=== PATIENT | male | born 1950 | race Caucasian/White ===

== ENCOUNTER → 2016-10-10 17:40 | Outpatient (CLI) | payer MEDICARE, OTHER ==
[2016-10-10 20:26] LABS: CHOL - HDL RATIO 4.3 ratio (2.3-4.9); LDL-HDL RATIO 2.9 ratio (1.5-3.5)
== END | disposition home or self-care (01) ==
LOC: D.LABREF 17:40
PROVIDERS: Internal Medicine Interventional Cardiology
DX: E78.5 Hyperlipidemia, unspecified (principal)

== ENCOUNTER 2017-09-29 08:21 | Outpatient (CLI) | payer MEDICARE, OTHER | END 2017-09-29 10:00 | LOC: D.OPS 08:21 → D.RAD 09:30 → D.OPS 10:00 | DX: R13.10 Dysphagia, unspecified (principal); Z01.812 Encounter for preprocedural laboratory examination ==

== ENCOUNTER → 2018-09-08 09:59 | Outpatient (CLI) | payer MEDICARE, OTHER ==
--- NOTE | 2018-09-10 10:32 | EC ---
PATIENT:BLADE VAZQUEZ DATE OF SERVICE: 09/08/18 SEX: M MEDICAL RECORD: [id number] DATE OF : 50 LOCATION:D[facility] AGE OF PATIENT: 67 ADMISSION DATE: 09/08/18 REFERRING PHYSICIAN: INTERPRETING PHYSICIAN: AYO ESTEVEZ MD ECHOCARDIOGRAM REPORT ECHO CHARGES 4 ECHO COMPLETE Date: 09/08/18 CLINICAL DIAGNOSIS: H/O HTN/CAD ECHOCARDIOGRAPHIC MEASUREMENTS (adult normal given) AC root (d.<3.7cm) 2.8 cm LV Septum d (<1.2 cm> 0.9 cm Valve Excursion 2.0 cm LV Septum (systole) 1.5 cm Left Atria (s.<4.0cm> 3.8 cm LVPW d(<1.2cm) 1.2 cm RV (d.<2.3cm) 2.9 cm LVPW (sytole) 1.5 cm LV diastole(<5.6CM) 4.9 cm MV E-F(>70mm/sec) cm LV systole 2.8 cm LVOT Diameter 1.9 cm MV exc.(>10mm) cm Est.ejection fraction (50-75%) % DOPPLER: LVIT cm/sec A 47.0 cm/sec E 76.0 cm/sec LA cm/sec RVSP 29.0 mmHg LVOT 102 cm/sec AOP1/2T m/s Asc. Ao 113 cm/sec RVOT 46.0 cm/sec RA cm/sec PA 97.0 cm/sec AV Gradient Peak 5.1 mmHg AV Mean 2.4 mmHg AV Area 2.5 cm MV Gradient Peak 3.4 mmHg MV Mean 1.3 mmHg MV Area cm COMMENTS: OP - HC Risk Control Product Liability Director: Elsie THOMAS KACIE Test Deck Supervisor: 3 Dr. Mercado TAPE# PACS Pericardial Effusion N DATE OF SERVICE: 09/08/2018 Adequate 2-D echo, color-flow and spectral Doppler, and M-mode. No LVH. LV internal dimensions are normal. Wall motion is normal. EF is equal to 55%. Aortic valve is tricuspid. No evidence of stenosis by Doppler interrogation. Left atrium is normal. Mitral valve shows no prolapse. Trace MR. Right-sided chambers are grossly normal. Trace TR. TRANSINT:[id number] Voice Confirmation ID: [id number] DOCUMENT ID: [id number] ECHOCARDIOGRAM REPORT [id number] BLADE VAZQUEZ,AYO Lucero MD at 1032 CC: [id number] DICTATION DATE: 09/09/18 1351 SENIOR CLINICAL DATA ANALYST: 09/09/18 1632 DEP CLI 09/08/18 [facility] [address] [id number]
== END | disposition home or self-care (01) ==
LOC: D.HCCARDIO 09:59
PROVIDERS: ATTEND Internal Medicine Interventional Cardiology
DX: I25.10 Atherosclerotic heart disease of native coronary artery without angina pectoris (principal)

== ENCOUNTER 2018-10-04 06:54 | Day surgery (SDC) | payer MEDICARE, BC ==
--- NOTE | 2018-10-01 16:30 | HP ---
PATIENT: BLADE VAZQUEZ MEDICAL RECORD: [id number] ACCOUNT: [id number] LOCATION:[facility] : 50 ADMISSION DATE: 10/04/18 PCP: EYAL MELCHOR MD HISTORY AND PHYSICAL EXAMINATION HISTORY: Mr. Vazquez is a 68-year-old male. He has significant, chronic, mostly right-sided sinus disease, refractory to medical management. He is being admitted for sinus surgery. PAST MEDICAL HISTORY: Includes reflux. CURRENT MEDICATIONS: Metoprolol, statin, ranitidine, and oxybutynin. ALLERGIES: No known drug allergies. PHYSICAL EXAMINATION: GENERAL: Healthy appearing, developmentally normal. FACE: Normal and symmetric. No lesions. EYES: Sclerae and conjunctivae are normal. EARS: Canals and TMs are normal. NOSE: No masses or polyps. He does have some significant septal deviation. ORAL CAVITY AND OROPHARYNX: Tongue protrudes in midline. Palate and pharynx normal. NECK: No masses. No adenopathy. CHEST: Clear. CARDIOVASCULAR: Regular rate and rhythm. No murmur. EXTREMITIES: Normal. DIAGNOSTIC DATA: CT shows right maxillary sinus opacified, some ethmoid disease, and material in both sphenoids. IMPRESSION: Mostly right-sided sinus disease. PLAN: Right anterior ethmoidectomy, right middle meatal antrostomy, and bilateral sphenoidotomy. I think that can be accomplished without septoplasty, but it is possible if necessary. TRANSINT:[id number] Voice Confirmation ID: [id number] DOCUMENT ID: [id number] CAROLA DICKERSON MD at 1630 CC: [id number] DICTATION DATE: 09/30/18 1423 SLATE CUTTER: 09/30/18 1443 [facility] [address] [place] [address]
[~2018-10-04] VITALS: Ht 167.6 cm; Wt 81.6 kg
[2018-10-04 07:19] LABS: HEMATOCRIT 42.7 % (42.0-54.0); MCHC 35.1 g/dL (31.0-37.0); MCV 96.8 fL (80.0-100.0); MEAN PLATELET VOLUME 9.7 fL (7.4-10.4); RBC 4.41 10x6/uL (4.20-6.10); RDW 12.5 % (11.5-14.5); WBC 5.3 10x3/uL (4.8-10.8)
[2018-10-04] MEDS ORDERED: PRAVACHOL40 MG PO (08:08)
[2018-10-04] MEDS ORDERED: TOPROL XL25 MG PO (08:11)
[2018-10-04] MEDS ORDERED: RANITIDINE TAB 150 (08:11)
[2018-10-04] MEDS ORDERED: OXYBUTYNIN (08:11)
[2018-10-04 08:13] VITALS: BP 113/67; Ht 167.6 cm; Wt 81.6 kg
--- NOTE | 2018-10-04 13:12 | NUR ---
INSPECTION OF ORAL AND NASAL AIRWAYS REVEALED HEMOSTASIS ACHIEVED. NO ACTIVE BLEEDING NOTED. SP02 97% ON ROOM AIR. NO RESPIRATORY DISTRESS NOTED. WILL CONTINUE TO MONITOR.
--- NOTE | 2018-10-04 13:46 | NUR ---
1345 FL DIET SERVED.
[2018-10-06 14:09] LABS: FUNGUS STAIN Final report (())
--- NOTE | 2018-11-01 11:31 | OP ---
PATIENT NAME: BLADE VAZQUEZ MEDICAL RECORD: [id number] :50 [facility] DATE: SURGEON: JORJE DOMINGUEZ MD DATE OF OPERATION: 10/04/2018 PREOPERATIVE DIAGNOSIS: Chronic sinusitis. POSTOPERATIVE DIAGNOSIS: Chronic sinusitis. PROCEDURES: Right middle meatal antrostomy, right anterior ethmoidectomy, bilateral sphenoidotomy. SURGEON: Jorje Dominguez MD ANESTHESIA: General orotracheal. BLOOD LOSS: Less than 5 cc. SPECIMENS: Tissue from the right lateral nasal wall uncinate. Cultures and path from right maxillary sinus contents. COMPLICATIONS: None. NASAL PACKING: None. DISPOSITION: Recovery stable. FINDINGS: Extremely thick mucus in the right maxillary sinus, anterior ethmoids. PROCEDURE IN DETAIL: She was brought to the operating room and placed in supine position, sedated and intubated by anesthesia. The table was turned 90 degrees. Head drape was applied. He was positioned for sinus surgery. He had already been decongested with Afrin preoperatively. Using a headlight and nasal speculum, the right side of the nose was examined. The middle turbinate, uncinate, lateral nasal wall were injected with 0.5 cc of 1% lidocaine with 1:100,000 epinephrine and 2 Afrin pledgets were placed in each side of the nose. He was positioned, prepped and draped in the usual sterile fashion. Then, using a 0-degree scope, the Afrin pledgets were removed from the right side. The nose was examined. The inferior turbinate was outfractured for better visualization. Looking at the inferior meatus, it was normal, floor of the nose and septum were normal. The middle meatus was normal. There were no polyps, turbinate was normal, nasal vault was normal. Looking back at the posterior nasal cavity, nasopharynx was all normal. A #9 suction was placed at the sphenoid ostia, which was just really slit-like. It was pressing there, was opened up, really was not much in that sinus. A nice clean opening was created there, really almost no bleeding. The sinus was suctioned out. Then the middle turbinate was medialized gently with a freer. Uncinate was fractured anteriorly with a ball tip probe. Microdebrider was used to take it down and expose the maxillary ostia. There was obviously some thick secretions bulging out of there. A large curved olive tip suction was inserted. This was hooked to a Luki trap and the contents of the maxillary sinus were evacuated. There were extremely thick mucus, was suctioned out the entire sinus. Once that was done, the sinus was examined with 30-degree scope, really looked completely evacuated. The mucosa looked normal. There were no polyps or erythema or granulation. OPERATIVE REPORT [id number] BLADE VAZQUEZ Then, the microdebrider was used to enter the ethmoid bulla inferomedially and take down the ethmoid bulla. There was some mucus anteriorly, but more posteriorly even in the anterior ethmoids, so completely clean. It was taken down. There really was no bleeding. Then, the left side was addressed with all the nasal cavity anteriorly were normal except for the septal spur, which made visualization a little bit more difficult, but the root of the superior turbinate was visualized. The sphenoid ostia was then addressed with a #7 suction on that side. It was clean as well. Then, the right maxillary sinus was irrigated repeatedly with saline and curved olive tip suction as were the anterior ethmoids on the right side. This was suctioned from the nasopharynx. Everything was reexamined and cleaned and pediatric upbiting forceps was used to remove some bony spicules from the anterior ethmoid cavity and then some mupirocin was placed in the anterior ethmoid and maxillary sinus. There was no significant bleeding. The pharynx was suctioned. The eyes were examined and normal. He was awakened, extubated, and transported to recovery in good condition. No complications. TRANSINT:[id number] Voice Confirmation ID: [id number] DOCUMENT ID: [id number] JORJE DOMINGUEZ MD at 1131 CC: [id number] DICTATION DATE: 10/04/18 1214 WOUND/OSTOMY NURSE: 10/04/18 1225 [facility] 10/04/[address] [place] [address]
[2018-11-02 07:14] LABS: FUNGUS MYCOLOGY CULTURE Final report (())
== END 2018-10-04 15:15 | disposition home or self-care (01) ==
LOC: D.OPS 06:54 → D.PAN 08:40 → D.OPS 09:30 → D.PAN 10:00 → D.OPS 10:45
PROVIDERS: Anesthesiology; ATTEND Otolaryngology
DX: J32.9 Chronic sinusitis, unspecified (principal)

== ENCOUNTER → 2019-08-23 08:26 | Outpatient (CLI) | payer MEDICARE, BC ==
[2018-10-04 08:13] VITALS: BMI 29.1
--- NOTE | ~2019-08-23 | EC ---
PATIENT:BLADE VAZQUEZ DATE OF SERVICE: 08/23/19 SEX: M MEDICAL RECORD: [id number] DATE OF : 50 LOCATION:D[facility] AGE OF PATIENT: 68 ADMISSION DATE: 08/23/19 REFERRING PHYSICIAN: INTERPRETING PHYSICIAN: AYO ESTEVEZ MD ECHOCARDIOGRAM REPORT ECHO CHARGES 4 ECHO COMPLETE Date: 08/23/19 CLINICAL DIAGNOSIS: DYSPNEA/LOWER EXT EDEMA CAD/HTN ECHOCARDIOGRAPHIC MEASUREMENTS (adult normal given) AC root (d.<3.7cm) 3.8 cm LV Septum d (<1.2 cm> 1.0 cm Valve Excursion 2.3 cm LV Septum (systole) 1.3 cm Left Atria (s.<4.0cm> 3.5 cm LVPW d(<1.2cm) 1.0 cm RV (d.<2.3cm) 3.4 cm LVPW (sytole) 1.5 cm LV diastole(<5.6CM) 5.2 cm MV E-F(>70mm/sec) cm LV systole 3.7 cm LVOT Diameter 1.8 cm MV exc.(>10mm) 1.6 cm Est.ejection fraction (50-75%) % DOPPLER: LVIT cm/sec A 76.0 cm/sec E 55.0 cm/sec LA cm/sec RVSP 15 mmHg LVOT 93 cm/sec AOP1/2T m/s Asc. Ao 115 cm/sec RVOT 74 cm/sec RA cm/sec PA 128 cm/sec AV Gradient Peak 5.27 mmHg AV Mean 3.08 mmHg AV Area 2.1 cm MV Gradient Peak 3.06 mmHg MV Mean 1.15 mmHg MV Area cm COMMENTS: Driver Sales: 2 ANDRE MCCRACKEN Template Storage Clerk: 3 Dr. Mercado TAPE# PACS Pericardial Effusion N DATE OF SERVICE: Adequate 2D, color flow imaging, spectral Doppler, and M-Mode. No LVH. LV internal dimension is normal. Wall motion is normal. EF is greater than or equal to 55%. Aortic valve is tricuspid. No evidence of stenosis by Doppler interrogation. Left atrium is normal. Mitral valve shows no prolapse. Trace MR. Right-sided chambers are grossly normal. Trace TR. TRANSINT:[id number] Voice Confirmation ID: [id number] DOCUMENT ID: [id number] ECHOCARDIOGRAM REPORT [id number] BLADE VAZQUEZ GREGORY A MD CC: [id number] DICTATION DATE: 08/24/19 0935 COOKER CLEANER: 08/24/19 1747 DEP CLI 08/23/19 [id number] [place] [address]
[~2019-08-23 08:26] MED LIST: OXYBUTYNIN; PRAVACHOL40 MG PO; RANITIDINE TAB 150; TOPROL XL25 MG PO
== END | disposition home or self-care (01) ==
LOC: D.HCCECHO 08:26
PROVIDERS: ATTEND Internal Medicine Interventional Cardiology
DX: I25.10 Atherosclerotic heart disease of native coronary artery without angina pectoris (principal)

== ENCOUNTER → 2019-08-24 08:50 | Outpatient (CLI) | payer MEDICARE, BC ==
[2018-10-04 08:13] VITALS: BMI 29.1
== END | disposition home or self-care (01) ==
LOC: D.HCCARDIO 08:50
PROVIDERS: ATTEND Internal Medicine Cardiovascular Disease
DX: R06.00 Dyspnea, unspecified (principal)

== ENCOUNTER 2019-09-06 11:53 | Outpatient (CLI) | payer MEDICARE, BC ==
[~2019-09-06] VITALS: Ht 167.6 cm; Wt 80.9 kg
--- NOTE | ~2019-09-06 | HEMODYNAMI ---
PATIENT:BLADE VAZQUEZ MEDICAL RECORD: [id number] : 50 LOCATION:DLudivinaCAT ADMISSION DATE: 09/06/19 Generatedon:09/06/201914:16 Patient name: BLADE VAZQUEZ Patient #: [id number] SSN: [id number] : 1950 Date of study: 09/06/2019 Page: Of Hemodynamic Procedure Report Patient Data Patient Demographics Procedure consent was obtained First Name: BLADE Gender: Male Last Name: TAYLOR : 1950 Middle Initial: E Age: 68 year(s) Patient #: [id number] Race: SSN: [id number] Additional ID: [id number] Contact details [address]: [address] [place] [address] State: [place] City: [place] Zip code: [address] Past Medical History Allergies Allergen Reaction Date Comments Reported Other allergy 09/06/2019 ATORVASTATIN Admission Admission Data Admission Date: 09/06/2019 Admission Time: 11:53 Arrival Date: 09/06/2019 Arrival Time: 0:00 Admit Source: Other Insurance Payor: Medicare [facility] #: [id number] Height (in.): 66 BSA: 1.9 (m2) Height (cm.): 167.64 BMI: 28.57 (kg/m2) Weight (lbs.): 177 Weight (kg.): 80.29 Lab Results Lab Result Date: 09/06/2019 Lab Result Time: 0:00 CBC Name Units Result Min Max Hematocrit % 44.6 --(*---)-- 42 54 Hemoglobin g/dl 14.9 --(-*--)-- 13.5 17.5 Procedure Procedure Types Cath Procedure Diagnostic Procedure [facility] w/Coronaries Procedure Description Procedure Date Procedure Date: 09/06/2019 Procedure Start Time: 14:02 Procedure End Time: 14:12 Procedure Staff Name Function Jevon Little MD Performing Physician Paulina Rush RT Monitor Azul Denny RT William Garrido RN Nurse Procedure Data Cath Procedure Fluoroscopy Diagnostic fluoroscopy Total fluoroscopy Time: 3.7 time: 3.7 min min Diagnostic fluoroscopy Total fluoroscopy dose: 485 dose: 485 mGy mGy Contrast Material Contrast Material Type Amount (ml) Isovue 300 58 Entry Location Entry Primary Successful Side Size Upsize Upsize Entry Closure Merritt ccessful Closure Location (Fr) 1 (Fr) 2 (Fr) Remarks Device Remarks Radial Right 6 Fr Mechanical artery Short Compression Estimated blood loss: 5 ml Diagnostic catheters Device Type Used For End Catheter Placement DIAGNOSTIC Ravalli 110cm 5 Multi-vessel Fr catheter ([id number]) Angiography Procedure Complications No complications Procedure Medications Medication Administration Route Dosage Oxygen etCO2 Nasal cannula 2 l/min Lidocaine 2% added to field 20 Heparin Flush Bag added to field 2 bags (1000units/500ml NS) 0.9% NaCl I.V. 100 ml/hr Versed I.V. 1 mg Fentanyl I.V. 50 mcg Versed I.V. 1 mg Fentanyl I.V. 50 mcg Versed I.V. 1 mg Hemodynamics Rest BSA: 1.9 (m2) HGB: 14.9 (g/dl) O2 Consumption: Estimated: 226.15 (ml/min) O2 Con sumption indexed: Estimated:119.03 (ml/min/m) Heart Rate: 78 (bpm) Pressure Samples Time Site Value (mmHg) Purpose Heart Use Rate(bpm) 14:06 LV 130/6,8 Snapshot 78 Gradients Valve Time Site Site Mean SEP/DFP Peak To Heart Use 1 2 (mmHg) (sec/min) Peak Rate (mmHg) (bpm) Aortic 14:06 LV AO 107 Snapshots Pre Cath Intra NCS Post Cath Vital Signs Time Heart Resp SPO2 etCO2 NIBP (mmHg) Rhythm Pain Sedation Rate (ipm) (%) (mmHg) Status Level (bpm) 13:49:26 74 17 99 39.7 157/92(132) NSR 0 (11) 10(A) , No pain 13:53:42 74 13 99 37.4 132/79(116) NSR 0 (11) 10(A) , No pain 13:57:56 79 14 99 41.9 122/81(105) NSR 0 (11) 10(A) , No pain 14:02:06 78 13 97 41.9 127/83(100) NSR 0 (11) 10(A) , No pain 14:06:16 70 15 96 38.2 103/81(91) NSR 0 (11) 9(A) , No pain 14:10:20 80 15 95 42.7 119/73(100) NSR 0 (11) 9(A) , No pain 14:13:46 81 14 96 8.9 125/73(95) NSR 0 (11) 10(A) , No pain Medications Time Medication Route Dose Verified Delivered Reason Notes Eff ectiveness by by 13:53:21 Oxygen etCO2 2 Jevon Buffie used for Nasal l/min [facility] Garrido kier tender cannula 13:53:26 Lidocaine 2% added 20ml Jevon Jevon for local to vial [facility] anesthetic field MD ALANIS 13:53:35 Heparin Flush added 2 Jevon Jevon used for Bag to bags [facility] procedure (1000units/500ml field MD ALANIS NS) 13:54:00 0.9% NaCl I.V. 100 Jevon Buffie Per ml/hr [facility] Garrido RN physician 13:54:23 Versed I.V. 1 mg Jevon Buffie for [facility] Garrido RN sedation 13:54:27 Fentanyl I.V. 50 Jevon Buffie for [facility] [place] [facility] Garrido RN sedation 14:00:31 Versed I.V. 1 mg Jevon Buffie for [facility] Garrido RN sedation 14:00:34 Fentanyl I.V. 50 Jevon Buff[address] for mcg [facility] Garrido RN sedation 14:07:55 Versed I.V. 1 mg Jevon Buffie for [facility] Garrido RN sedation Procedure Log Time Note 13:07:28 Informed consent obtained and on chart 13:07:37 Diagnostic Cath Status : Elective 13:07:53 Arrival Date: 09/06/2019 12:00:00 AM 13:07:54 Admit Source: Other 13:07:56 Insurance Payor : Medicare 13:08:24 Patient Height : 66 inches 13:08:31 Patient Weight : 177 lbs 13:18:34 Procedure Status Elective Heart Cath (OP). 13:18:37 Time tracking: Regular hours (M-F 7:00 - 5:00) 13:18:42 Plan of Care:Hemodynamics will remain stable., Cardiac rhythm will remain stable., Comfort level will be maintained., Respiratory function will remain adequate., Patient/ family verbilizes understanding of procedure., Procedure tolerated without complication., Recovers from procedure without complications.. 13:23:05 Paulina Rush RT(R) sent for patient. Start room use. 13:38:48 Lab Result : Hemoglobin 14.9 g/dl 13:38:48 Lab Result : Hematocrit 44.6 % 13:39:30 Stress Test: yes; abnormal INFERIOR AND LATERAL 13:39:32 Alarms reviewed by R. N. 13:39:32 Sharps counted by scrub and verified by R.N. 13:39:38 Lab results completed and on chart. 13:39:54 H&P Date Dictated: 08/18/2019 Within 30 days and on chart.. 13:41:29 Patient received from Pre/Post Procedure Room to CCL 1 Alert and oriented. Tansferred to table in Supine position. 13:41:31 Warm blankets applied, and louie hugger turned on for patient comfort. 13:41:32 Correct patient and procedure confirmed by team. 13:41:32 ECG and BP/O2 sat monitors applied to patient. 13:41:34 Pre-procedure instructions explained to patient. 13:41:35 Pre-op teaching completed and patient verbalized understanding. 13:41:37 Family in waiting room. 13:41:38 Patient NPO since Midnight. 13:41:53 Patient allergic to Other allergyATORVASTATIN 13:42:10 Is the patient allergic to Iodine/contrast media? No. 13:47:19 Was the patient premedicated? Yes 13:47:26 Is patient on blood thinner?No 13:47:32 Patient diabetic? No. 13:47:33 Previous problem with sedation/anesthesia? No ? 13:48:05 Snore? Yes 13:48:06 Sleep apnea? No 13:48:07 Deviated septum? No 13:48:08 Opens mouth fully? Yes 13:48:09 Sticks out tongue? Yes 13:48:12 Airway obstruction? No ? 13:48:14 Vital chart was started 13:48:16 Dentures? No ? 13:48:19 Pre procedure: right dorsailis pedis pulse 2+ Normal; easily identifiable; not easily obliterated 13:48:22 Pre procedure: left dorsailis pedis pulse 2+ Normal; easily identifiable; not easily obliterated 13:48:25 Patient pain scale 0/10 ?. 13:48:31 IV patent on arrival in left antecubital with 0.9% NaCl at [facility]. 13:50:10 Physician arrived 13:50:11 --------ALL STOP TIME OUT------ 13:50:11 Final Timeout: patient, procedure, and site verified with staff and physician. All members of the team are in agreement. 13:50:14 Right Radial & Right Groin site verified by team. 13:50:17 Fire Safety Assessment: A--An alcohol-based skin anteseptic being used preoperatively., C--Open oxygen or nitrous oxide is being used., D--An ESU, laser, or fiber-optic light is being used. 13:50:20 Physical assessment completed. ASA score P 2 - A patient with mild systemic disease as per Jevon Little MD. 13:50:58 Baseline sample Acquired. 13:51:01 Rhythm: sinus rhythm 13:51:03 Full Disclosure recording started 13:53:21 Oxygen 2 l/min etCO2 Nasal cannula was administered by Patrice Garrido RN; used for procedure; Verbal order read back and verified. 13:53:26 Lidocaine 2% 20ml vial added to field was administered by Jevon Little MD; for local anesthetic; Verbal order read back and verified. 13:53:35 Heparin Flush Bag (1000units/500ml NS) 2 bags added to field was administered by Jevon Little MD; used for procedure; Verbal order read back and verified. 13:54:00 0.9% NaCl 100 ml/hr I.V. was administered by Patrice Garrido RN; Per physician; Verbal order read back and verified. 13:54:23 Versed 1 mg I.V. was administered by Patrice Garrido RN; for sedation; Verbal order read back and verified. 13:54:27 Fentanyl 50 mcg I.V. was administered by Patrice Garrido RN; for sedation; Verbal order read back and verified. 14:00:31 Versed 1 mg I.V. was administered by Patrice Garrido RN; for sedation; Verbal order read back and verified. 14:00:34 Fentanyl 50 mcg I.V. was administered by Patrice Garrido RN; for sedation; Verbal order read back and verified. 14:01:11 2) 60-89 Mildly reduced kidney function, and other findings (as for stage 1) point to kidney disease. 14:01:36 Maximum allowable contrast dose (3.7 X eGFR X 0.75)219 ml. 14:01:38 Zero performed for pressure channel P1 14:01:56 Use device set Radial Dx or PCI 14:01:57 ACIST Syringe (76787) opened to sterile field. 14:01:57 Medline Cath Pack ([id number]) opened to sterile field. 14:01:57 Bag Decanter (2002S) opened to sterile field. 14:01:58 ACIST Hand Control (81969) opened to sterile field. 14:01:58 ACIST Manifold (95772) opened to sterile field. 14:01:58 Tegaderm 4 x 4 (1626W) opened to sterile field. 14:01:59 MBrace Wrist Support ([id number]) opened to sterile field. 14:02:01 SHEATH 6FR RAIN (3487986) opened to sterile field. 14:02:02 EMERALD Guide Wire (432-815) opened to sterile field. 14:02:06 Procedure started. 14:02:11 Local anesthetic to right radial artery with Lidocaine 2% by Jevon Little MD.INITIAL ACCESS ONLY 14:02:31 A 6 Fr Short sheath was inserted into the Right Radial artery 14:04:10 A DIAGNOSTIC Ravalli 110cm 5 Fr catheter ([id number]) was advanced over the wire and used for Multi-vessel Angiography. 14:06:17 LV hemodynamics recorded. 14:06:18 LV gram done using MARISCAL 14:06:20 Injector settings: Ml/sec: 5, Volume: 15, 14:06:31 EF : 55 % 14:06:49 RCA angiography performed. 14:07:01 Injector settings: Ml/sec: 3, Volume: 6, 14:07:42 Catheter removed. 14:07:55 Versed 1 mg I.V. was administered by Patrice Garrido RN; for sedation; Verbal order read back and verified. 14:08:38 GUIDE 5FR EBU 3.5 catheter ([id number]) opened to sterile field. 14:08:51 5 Fr EBU 3.5 guide catheter was inserted over the wire 14:09:40 LCA angiography performed. 14:09:44 Injector settings: Ml/sec: 3, Volume: 6, 14:10:27 Catheter removed. 14:10:30 ZEPHYR REGULAR TR BAND ([id number]) opened to sterile field. 14:10:36 ACCDominant side:Right 14:10:44 Sheath removed intact; hemostasis achieved with Mechanical Compression to the Right Radial artery. 14:10:56 Procedure ended.(Physican Out) 14:11:05 Fluoroscopy time 03.70 minutes. 14:11:09 Flurop Dose total: 485 14:11:09 Fluoroscopy dose: 485 mGy 14:11:14 Dose Area Product 53443 mGy/cm. 14:11:18 Contrast amount:Isovue 300 58ml. 14:11:20 Maximum allowable dose exceeded? No. 14:11:21 Sharps counted by scrub and verified by R.N. 14:11:26 [place] band inflated with 10cc of air. 14:11:27 Insertion/operative site no bleeding no hematoma. 14:11:31 Post right radial artery:stable 14:11:32 Post Procedure Pulses reassessed and unchanged 14:11:34 Post procedure rhythm: unchanged. 14:11:37 Estimated blood loss: 5 ml 14:11:45 Post procedure instruction explained to patient.Patient verbalizes understanding. 14:11:46 Patient needs reinforcement of post procedure teaching. 14:12:13 Procedure and supply charges have been captured, reviewed, submitted and are correct. 14:12:18 Procedure Complication : No complications 14:12:20 Vital chart was stopped 14:12:22 [facility] Findings: mild to moderate CAD (<70%) 14:12:24 Operative report dictated upon procedure completion. 14:12:25 See physician's report for complete and final results. 14:12:27 Report given to Pre/Post Procedure Room. 14:12:29 Procedure ended. 14:12:29 Full Disclosure recording stopped 14:12:33 End room use (Document Last) 14:12:59 End room use (Document Last) 14:13:15 End room use (Document Last) Device Usage Item Name Manufacture Quantity Catalog Hospital Part Current Minima l Lot# / Number Charge Number Stock Stock Serial# Code ACIST Acist 1 91488 667471 [id number] 046912 20 Mindset Media (49143) Low Carbon Technology Inc Medline Medline 1 [id number] 262102 26675 715108 5 Cath Pack ([id number]) Bag Microtek 1 2001S 195504 78887 490226 5 Decanter Medical Inc. () ACIST Hand Acist 1 57395 045733 365140 297811 5 Control Medical (28294) Systems Inc ACIST Acist 1 35868 180190 028819 129947 5 Manifold Medical (58502) Systems Inc Tegaderm 4 3M 1 1626W [id number] 843573 191275 5 x 4 (1626W) MBrace Advanced 1 140-0250-00 318444 36848 453494 5 Wrist Vascular Support Dynamics ([id number]) SHEATH 6FR Cardinal 1 [id number] 434949 8243139 430294 5 [facility] Health (8654208) EMERALD Cardinal 1 301-603 909843 309327 781732 5 Guide Wire Health (262-178) DIAGNOSTIC Terumo 1 43-3073 130329 812182 872995 5 Ravalli 110cm 5 Fr catheter (511240) GUIDE 5FR Medtronic 1 [id number] 896501 642149 591729 1 EBU 3.5 catheter ([id number]) ZEPHYR Cardinal 1 927063 667391 4999818 474867 5 REGULAR TR Health BAND (484268) Signature Audit [place] Stage Time Signature Unsigned Intra-Procedure 09/06/2019 Paulina Rush 2:12:59 PM RT(R) Intra-Procedure 09/06/2019 Patrice Garrido RN 2:13:15 PM Intra-Procedure 09/06/2019 Jevon Walters 2:16:36 [address] [facility] [place] [place] [address]
[2019-09-06] MEDS ORDERED: BAYER CHEWABLE81 MG PO (12:57)
[2019-09-06] MEDS ORDERED: PEPCID AC20 MG PO (12:57)
[2019-09-06] MEDS ORDERED: GABAPENTIN300 MG PO (12:58)
[2019-09-06] MEDS ORDERED: FISH OIL 1,0001 CA1 PO (13:00)
[2019-09-06 13:11] VITALS: BP 151/82; Ht 167.6 cm; Wt 80.9 kg
[2019-09-06 13:30] LABS: BASOPHILS 0.2 % (0-2); EOSINOPHILS 2.9 % (0-7); HEMATOCRIT 44.6 % (42.0-54.0); HEMOGLOBIN 14.9 g/dL (13.5-17.5); IMMATURE GRANULOCYTES 0.4 % (0-5); MCH 34.1 pg (26.0-34.0); MCHC 33.4 g/dL (31.0-37.0); MCV 102.1 fL (80.0-100.0); MEAN PLATELET VOLUME 9.8 fL (7.4-10.4); MONOCYTES 10.8 % (2-11); NEUTROPHILS 70.7 % (40-80); PLATELET COUNT 181 10x3/uL (130-400); RBC 4.37 10x6/uL (4.20-6.10); RDW 13.6 % (11.5-14.5); WBC 8.9 10x3/uL (4.8-10.8)
[2019-09-06 13:52] LABS: ALT (SGPT) 35 U/L (10-68); CALC OSMOLALITY 274 mosm/kg (275-300); CALCIUM 8.8 mg/dL (8.5-10.1); CARBON DIOXIDE 32.1 mmol/L (21.0-32.0); CHLORIDE - SERUM 102 mmol/L (98-107); CHOL - HDL RATIO 3.5 ratio (2.3-4.9); CHOLESTEROL, TOTAL 165 mg/dL (0-200); GLUCOSE 85 mg/dL (74-106); HDL CHOLESTEROL 47 mg/dL (32-96); LDL CHOLESTEROL 100 mg/dL (0-100); LDL-HDL RATIO 2.1 ratio (1.5-3.5); POTASSIUM - SERUM 3.6 mmol/L (3.5-5.1); SODIUM 138 mmol/L (136-145); TRIGLYCERIDE 90 mg/dL (30-200); UREA NITROGEN 13 mg/dL (7-18); eGFR NON AFRICAN AMERICAN 79 mL/min (90-120)
--- NOTE | 2019-09-06 14:22 | NUR ---
PT REC'D TO ROOM 3 VIA STRETCHER FROM INFORMATICS DEVELOPER. MONITORS ESTAB. AT BS. SEE PULL TAB DEALER, ALARMS ON AND C/L IN REACH.
[2019-09-06] MEDS ORDERED: OMEPRAZOLE20 M1 PO (14:39)
--- NOTE | 2019-09-06 14:40 | NUR ---
R WRIST SITE C/D/I, NO S/S BLEEDING OR HEMATOMA. R ARM/HAND WARM WITH PALP PULSES. VSS. AT BS.
--- NOTE | 2019-09-06 15:10 | NUR ---
R WRIST SITE C/D/I - 2CC AIR REMOVED FROM ZBAND. NO S/S BLEEDING OR SWELLING. R ARM/HAND WARM WITH PALP PULSES. PT DENIES NEEDS.
--- NOTE | 2019-09-06 15:25 | NUR ---
R WRIST Z BAND SITE C/D/I, NO S/S BLEEDING OR SWELLING. 2CC MORE REMOVED FROM Z BAND. R HAND WARM WITH PALP PULSES. VSS. PT GIVEN WATER PER REQUEST. C/L IN REACH.
--- NOTE | 2019-09-06 15:40 | NUR ---
TOTAL 7CC AIR REMOVED FROM Z BAND, NO S/S BLEEDING OR SWELLING. HAND WARM, PULSES PALP.
--- NOTE | 2019-09-06 16:00 | NUR ---
ALL AIR REMOVED FROM Z BAND, WILL CONT CLOSE MONITORING. PT VOIDED 300ML CLEAR, YELLOW URINE IN URINAL.
--- NOTE | 2019-09-06 16:25 | NUR ---
R WRIST SITE C/D/I, NO S/S BLEEDING. PIV D/C'D INTACT, DSG APPLIED. PT ALLOWED UP TO GET DRESSED, ASSISTING.
--- NOTE | 2019-09-06 16:35 | NUR ---
Z BAND OFF, DSG APPLIED, NO S/S BLEEDING OR SWELLING. ALL DISCHARGE INSTRUCTIONS REVIEWED WITH PT AND HIS , INCLUDING MEDS, RESTRICTIONS AND F/U APPT. BOTH VERBALIZE UNDERSTANDING.
--- NOTE | 2019-09-06 16:40 | NUR ---
PT D/C'D TO PRIVATE VEHICLE WITH ALL PAPERWORK AND BELONGINGS.
--- NOTE | 2019-09-08 14:53 | OP ---
PATIENT NAME: BLADE VAZQUEZ MEDICAL RECORD: [id number] :50 LOCATION:D.CAT ADMISSION DATE: SURGEON: AYO ESTEVEZ MD DATE OF OPERATION: 09/06/2019 PROCEDURE: Left heart catheterization, selective coronary angiography, right radial artery approach. CATHETERS: Radial sheath, [place] catheter. The procedure was well tolerated. The patient returned to espinal. Sheath removed. TR band was placed. FINDINGS: Left ventriculography in 30-degree MARISCAL view: Normal wall motion. Normal systolic function. CORONARY ANATOMY: LEFT MAIN: Free of disease. LAD: Free of disease in the diagonal system. CIRCUMFLEX: Free of disease in the marginal system. RIGHT CORONARY ARTERY: Dominant artery, gives rise to PDA, free of disease. IMPRESSION: Normal left ventricular systolic function. Normal coronary anatomy. NTS:[id number] Voice Confirmation ID: [id number] DOCUMENT ID: [id number] AYO ESTEVEZ MD at 1453 CC: [id number] DICTATION DATE: 09/06/19 1422 GROUP TESTER: 09/06/191909 DEP CLI 09/06/19 [facility] [address] [place] [address]
== END 2019-09-06 16:40 | disposition home or self-care (01) ==
LOC: D.CATH 11:53
PROVIDERS: ATTEND Internal Medicine Interventional Cardiology
DX: R06.00 Dyspnea, unspecified (principal); R60.0 Localized edema; I10 Essential (primary) hypertension; I25.10 Atherosclerotic heart disease of native coronary artery without angina pectoris; E78.5 Hyperlipidemia, unspecified